=== PATIENT | male | born 1955 | race African-American/Black ===

== ENCOUNTER 2021-12-28 00:15 | Inpatient (IN) | payer MEDICARE, OTHER ==
[~2021-12-28] VITALS: Ht 182.9 cm; Wt 103.4 kg
[~2021-12-28 00:15] MED LIST: ASPI-1160 PO; CLOP75TA15 PO; COR3 PO; LOSA25TA26 PO
[2021-12-28] MEDS ORDERED: NITROGLYCERIN 0.4MG TABLET SL SL PRN (00:45)
[2021-12-28 01:22] LABS: BASOPHILS % 0.7 % (0.0-2.0); EOSINOPHILS % 2.6 % (0.0-5.0); HEMATOCRIT. 44.4 % (42.0-52.0); HEMOGLOBIN. 14.9 g/dL (14.0-18.0); LYMPHOCYTES % 24.1 % (20.0-50.0); MEAN CORPUSCULAR HEMOGLOBIN 31.6 pg (28.0-32.0); MEAN CORPUSCULAR VOLUME 94.3 fL (80.0-94.0); MEAN PLATELET VOLUME 8.7 fl (7.4-10.4); NEUTROPHILS % 62.6 % (40.0-76.0); PLATELET 257 x1000/uL (130-400); RED BLOOD CELL COUNT 4.71 mill/uL (4.7-6.1)
[2021-12-28 02:02] LABS: CHLORIDE 109 mEq/L (98-107)
[2021-12-28 05:20] LABS: PARTIAL THROMBOPLASTIN TIME 27.5 sec (23.4-31.0); PROTHROMBIN TIME 10.9 sec (9.6-11.0)
[2021-12-28] MEDS ORDERED: ENOXAPARIN 100MG/ML SYR SUBCUT NR ×2 (06:00→11:00)
[2021-12-28 08:30] VITALS: BP 147/92
[2021-12-28] MEDS ORDERED: DIPHENHYDRAMINE 50MG/ML VIAL IV PRN (10:30)
[2021-12-28] MEDS ORDERED: ONDANSETRON HCL 4MG/2ML INJ IV PRN (10:30)
[2021-12-28] MEDS ORDERED: CLONIDINE 0.1MG TABLET PO PRN (10:30)
[2021-12-28] MEDS ORDERED: MORPHINE SULFATE 2 MG/ML CPJ (NOT FOR IM USE) IV PRN (10:30)
[2021-12-28] MEDS ORDERED: MAGNESIUM/ALUMINUM HYDROXIDE/SIMETHICONE 30ML UDC PO PRN (10:30)
[2021-12-28] MEDS ORDERED: HYDRALAZINE 20MG/ML VIAL IV PRN (10:30)
[2021-12-28] MEDS ORDERED: ACETAMINOPHEN 325MG TABLET PO PRN ×2 (10:30)
[2021-12-28 10:36] VITALS: BP 147/92
[2021-12-28] MEDS ORDERED: NALOXONE HCL 0.4MG/ML VIAL IV PRN (11:00)
[2021-12-28 12:00] VITALS: BP 148/96
[2021-12-28] MEDS: SODIUM CHLORIDE 0.9% INJ 3ML FLUSH IVF SCH ×2 (12:19→21:20)
[2021-12-28] MEDS: LOSARTAN POTASSIUM 25 MG TABLET PO SCH (12:40)
[2021-12-28] MEDS: NITROGLYCERIN OINT 1GM/INCH UDPKT TD SCH ×2 (14:10→21:20)
[2021-12-28 15:25] LABS: *AMPHETAMINES SCREEN URINE NEGATIVE (NEGATIVE); *BARBITURATES SCREEN URINE NEGATIVE (NEGATIVE); *BENZODIAZEPINES SCREEN URINE NEGATIVE (NEGATIVE); *COCAINE SCREEN URINE NEGATIVE (NEGATIVE); CANNABINOID URINE SCREEN NEGATIVE (NEGATIVE); METHADONE URINE SCREEN NEGATIVE (NEGATIVE); OPIATES URINE SCREEN NEGATIVE (NEGATIVE); PHENCYCLIDINE URINE SCREEN NEGATIVE (NEGATIVE)
[2021-12-28 16:00] VITALS: BP 131/84
[2021-12-28] MEDS ORDERED: ENOXAPARIN 100MG/ML SYR SUBCUT SCH (17:00)
[2021-12-28 20:00] VITALS: BP 127/82
[2021-12-28] MEDS ORDERED: ZOLPIDEM TARTRATE 5MG TABLET PO PRN (21:00)
[2021-12-28] MEDS ORDERED: ATORVASTATIN CALCIUM 20MG TABLET PO SCH (21:00)
[2021-12-28] MEDS: METOPROLOL TARTRATE 25MG TABLET PO SCH (21:21)
[2021-12-29] VITALS (8 sets, daily range): BP systolic 106–149; BP diastolic 68–91
[2021-12-29] MEDS: NITROGLYCERIN OINT 1GM/INCH UDPKT TD SCH ×3 (06:25→21:41)
[2021-12-29] MEDS: SODIUM CHLORIDE 0.9% INJ 3ML FLUSH IVF SCH ×3 (06:25→20:34)
[2021-12-29 06:47] LABS: BASOPHILS % 0.5 % (0.0-2.0); EOSINOPHILS % 2.4 % (0.0-5.0); HEMATOCRIT. 40.9 % (42.0-52.0); HEMOGLOBIN. 14.1 g/dL (14.0-18.0); LYMPHOCYTES % 22.9 % (20.0-50.0); MEAN CORPUSCULAR HEMOGLOBIN 31.9 pg (28.0-32.0); MEAN CORPUSCULAR VOLUME 92.4 fL (80.0-94.0); MEAN PLATELET VOLUME 9.1 fl (7.4-10.4); MONOCYTES % 11.3 % (2.0-8.0); NEUTROPHILS % 62.9 % (40.0-76.0); PLATELET 232 x1000/uL (130-400); RED BLOOD CELL COUNT 4.43 mill/uL (4.7-6.1); RED CELL DISTRIBUTION WIDTH 12.7 % (11.6-14.6)
[2021-12-29 06:59] LABS: CHLORIDE 105 mEq/L (98-107)
[2021-12-29 07:09] LABS: HDL CHOLESTEROL 43 mg/dL (40-59); LDL CHOLESTEROL 113 mg/dL (5-100)
[2021-12-29] MEDS ORDERED: IODIXANOL 320MG/ML 100 ML BOTTLE IV ONE ×4 (07:35→09:21)
[2021-12-29] MEDS ORDERED: HEPARIN 1000 UNITS/ML 10ML ONE (07:35)
[2021-12-29] MEDS ORDERED: FENTANYL CITRATE/PF 50MCG/ML 2ML VIAL ONE (07:35)
[2021-12-29] MEDS ORDERED: LIDOCAINE HCL/PF 1% 10 MG/ML 5ML VIAL ONE (07:35)
[2021-12-29] MEDS ORDERED: MIDAZOLAM HCL 2 MG/2 ML VIAL ONE (07:36)
[2021-12-29] MEDS ORDERED: ATROPINE SULFATE 1MG/10ML SYR ONE (08:57)
[2021-12-29] MEDS: ASPIRIN 81MG EC TABLET PO SCH (09:00)
[2021-12-29] MEDS: CLOPIDOGREL 75MG TABLET PO SCH (09:00)
[2021-12-29] MEDS ORDERED: CLOPIDOGREL 75MG TABLET ONE (09:27)
[2021-12-29] MEDS ORDERED: ASPIRIN 325MG TABLET ONE (09:27)
[2021-12-29] MEDS ORDERED: ATROPINE SULFATE 1MG/10ML SYR IV PRN (09:45)
[2021-12-29] MEDS ORDERED: ACETAMINOPHEN 325MG TABLET PO PRN (09:45)
[2021-12-29] MEDS: METOPROLOL TARTRATE 25MG TABLET PO SCH ×2 (11:24→20:33)
[2021-12-29] MEDS: LOSARTAN POTASSIUM 25 MG TABLET PO SCH (11:24)
[2021-12-29] MEDS ORDERED: ATORVASTATIN CALCIUM 40MG TABLET PO SCH (21:00)
[2021-12-30] VITALS (11 sets, daily range): BP systolic 109–130; BP diastolic 51–76
[2021-12-30] MEDS: NITROGLYCERIN OINT 1GM/INCH UDPKT TD SCH ×2 (05:52→14:42)
[2021-12-30] MEDS: SODIUM CHLORIDE 0.9% INJ 3ML FLUSH IVF SCH ×2 (05:52→14:00)
[2021-12-30 06:03] LABS: BASOPHILS % 0.5 % (0.0-2.0); EOSINOPHILS % 2.6 % (0.0-5.0); HEMATOCRIT. 42.2 % (42.0-52.0); HEMOGLOBIN. 14.7 g/dL (14.0-18.0); LYMPHOCYTES % 16.3 % (20.0-50.0); MEAN CORPUSCULAR VOLUME 92.1 fL (80.0-94.0); MEAN PLATELET VOLUME 8.9 fl (7.4-10.4); MONOCYTES % 11.6 % (2.0-8.0); PLATELET 254 x1000/uL (130-400); RED BLOOD CELL COUNT 4.58 mill/uL (4.7-6.1); RED CELL DISTRIBUTION WIDTH 12.9 % (11.6-14.6)
[2021-12-30 06:11] LABS: CHLORIDE 105 mEq/L (98-107)
[2021-12-30] MEDS: LOSARTAN POTASSIUM 25 MG TABLET PO SCH (08:22)
[2021-12-30] MEDS: ASPIRIN 81MG EC TABLET PO SCH (08:22)
[2021-12-30] MEDS: METOPROLOL TARTRATE 25MG TABLET PO SCH (08:23)
[2021-12-30] MEDS: CLOPIDOGREL 75MG TABLET PO SCH (08:23)
== END 2021-12-30 18:30 | disposition home or self-care (01) | DRG 247 ==
LOC: ER 00:15 → 6WST 04:47 → UNDOADMIN 04:47 → MICUSO 04:47 → 5EST 12-29 09:47
PROVIDERS: ADMIT Internal Medicine; ATTEND Internal Medicine
PROC: 4A023N7 Measurement of Cardiac Sampling and Pressure, Left Heart, Percutaneous Approach (ICD-10-PCS; principal; 2021-12-29)
PROC: 027135Z Dilation of Coronary Artery, Two Arteries with Two Drug-eluting Intraluminal Devices, Percutaneous Approach (ICD-10-PCS; 2021-12-29)
PROC: 02703ZZ Dilation of Coronary Artery, One Artery, Percutaneous Approach (ICD-10-PCS; 2021-12-29)
PROC: B2111ZZ Fluoroscopy of Multiple Coronary Arteries using Low Osmolar Contrast (ICD-10-PCS; 2021-12-29)
DX: I21.4 Non-ST elevation (NSTEMI) myocardial infarction (principal); I50.30 Unspecified diastolic (congestive) heart failure; I25.110 Atherosclerotic heart disease of native coronary artery with unstable angina pectoris; I11.0 Hypertensive heart disease with heart failure; E66.01 Morbid (severe) obesity due to excess calories; E78.00 Pure hypercholesterolemia, unspecified; F17.200 Nicotine dependence, unspecified, uncomplicated; R77.8 Other specified abnormalities of plasma proteins; Z20.822 Contact with and (suspected) exposure to COVID-19; Z91.19 Patient's noncompliance with other medical treatment and regimen; I25.2 Old myocardial infarction; Z95.5 Presence of coronary angioplasty implant and graft; Z68.30 Body mass index [BMI] 30.0-30.9, adult
CPT/HCPCS: 36415; 71045; 80048; 80053; 80061; 80305; 83735; 83880; 84484; 85025; 85347; 87426; 92928; 92929; 93005; 93306; 93458; 99285; C1725; C1769; C1874; C1887; C1893; J0461; J1644; J1650; J2250; J3010; J3490; Q9967